=== PATIENT | female | born 1955 | race Caucasian/White ===

== ENCOUNTER 2024-03-19 07:20 | Outpatient (CLI) | payer MEDICARE, SELFPAY ==
--- NOTE | 2024-03-19 07:22 | AAAS_ITS ---
Reason For Study: HX Carotid Aneurysm Aorta Measurements Aorta Doppler Measurements Proximal aorta measures2.57 x 2.59cm. in cross- Peak systolic flow velocities within the proximal sectional axis. aorta measure 54.2 cm/sec. Proximal aorta measures2.48cm. in longitudinal Peak systolic flow velocities within the mid aorta axis. measure 77.7 cm/sec. Mid aorta measures2.25 x 2.03cm. in cross- Peak systolic flow velocities within the distal sectional axis. aorta measure 68.7 cm/sec. Mid aorta measures2.24cm. in longitudinal axis. Distal aorta measures1.47 x 1.47cm. in cross- sectional axis. Distal aorta measures1.53cm. in longitudinal axis. Left Iliac Artery Left iliac artery measures 0.99 x 1.02 cm. in the cross-sectional axis. Left iliac artery measures 0.98 cm. in the longitudinal axis. Peak systolic velocity in the left iliac artery measures 129.3 cm/sec. Right Iliac Artery Right iliac artery measures 0.99 x 0.98 cm. in the cross-sectional axis. Right iliac artery measures 0.96 cm. in the longitudinal axis. Peak systolic velocity in the right iliac artery measures 139.7 cm/sec. Procedure Aorta IVC Iliac vasculature or bypass grafts [id number]. The exam was diagnostic. Exam performed in department. VL/AAA Screening Interpretation Summary Aorta patent, normal caliber Bilateral iliac arteries patent, normal caliber. Ordering Physician: Rosa Elena Christina Referring Physician: Greg Nance Performed By: Koffi Osborne, RVT
--- NOTE | 2024-03-19 07:22 | VDLE_ITS ---
Reason For Study: Preoperative Vein Mapping RIGHT LEFT GSV Prox Thigh - 0.42cm x 0.40cm GSV Prox Thigh - 0.89cm x 0.96cm GSV Mid Thigh - 0.42cm x 0.43cm GSV Mid Thigh - 0.75cm x 0.82cm GSV Dist Thigh - 0.39cm x 0.39cm GSV Dist Thigh - 1.26cm x 1.71cm GSV Knee - 0.45cm x 0.43cm GSV Knee - 0.94cm x 1.03cm GSV Prox Calf - 0.32cm x 0.35cm GSV Prox Calf - 0.87cm x 0.89cm GSV Mid Calf - 0.23cm x 0.22cm GSV Mid Calf - 0.25cm x 0.25cm GSV Dist Calf - 0.23cm x 0.25cm GSV Dist Calf - 0.26cm x 0.29cm SSV Prox Calf - 0.18cm x 0.18cm SSV Prox Calf - 0.30cm x 0.30cm SSV Mid Calf - 0.28cm x 0.26cm SSV Mid Calf - 0.26cm x 0.23cm SSV Dist Calf - 0.31cm x 0.29cm SSV Dist Calf - 0.27cm x 0.29cm GSV and SSV appear patent and compressible. GSV and SSV appear patent and compressible. Procedure This is a venous duplex using B-mode, color Incompetent Varicose Veins noted throughout flow and spectral Doppler. calves. Exam performed in department. The exam was diagnostic. Perfortating Vessel distal calf is INCOMPETENT for greater than 0.5 seconds and measures 0.38 cm. SFJ is INCOMPETENT and measures 1.08 cm. GSV INCOMPETENT throughout for greater than 0.5 seconds. VL/Saphenous Vein Mapping, Bilat Interpretation Summary Right great saphenous vein patent with measurements above. Left great saphenous vein patent with measurements above. Right small saphenous vein patent with measurements above. Left small saphenous vein patent with measurements above. Incidental reflux noted on left Ordering Physician: Rosa Elena Christina Referring Physician: Greg Nance Performed By: Koffi Osborne RVT
== END 2024-03-19 23:59 | disposition home or self-care (01) ==
PROVIDERS: PCP Family Medicine; Referring Provider Physician Assistant; Visit Provider Physician Assistant
DX: Z01.818 Encounter for other preprocedural examination (principal); I72.0 Aneurysm of carotid artery; Z86.79 Personal history of other diseases of the circulatory system
CPT/HCPCS: 76706; 93970

== ENCOUNTER 2024-04-06 12:33 | Inpatient (IN) | payer MEDICARE, SELFPAY ==
--- NOTE | 2024-03-19 07:18 | EKG12_ITS ---
Test Reason : PRE OP Blood Pressure : / mmHG Vent. Rate : 078 BPM Atrial Rate : 078 BPM P-R Int : 146 ms QRS Dur : 086 ms QT Int : 378 ms P-R-T Axes : 059 -28 031 degrees QTc Int : 430 ms Normal sinus rhythm Septal infarct , age undetermined Abnormal ECG Confirmed by FAM MEYER, JOHN ([id number]), state editor HAN SOL ([id number]) on 03/19/2024 10:02:26 AM Referred By: TIKA Confirmed By:JOHN OTTO MD
--- NOTE | 2024-03-19 07:30 | RAD_ITS ---
INDICATION: Preop exam, recent pneumonia EXAMINATION/TECHNIQUE: X-RAY - XR Chest 2 Views COMPARISON: 03/19/2024. FINDINGS: The lungs are clear. Tortuous and calcified thoracic aorta. The heart is not enlarged. No pleural effusion or pneumothorax. Degenerative changes of the thoracic spine. RAD/Chest PA and Lateral IMPRESSION: No acute radiographic abnormalities. Electronically Signed: Kade Hernández MD at 16:25 EDT ,
[2024-03-31 11:16] LABS: Absolute Lymphocyte Count 1.53 X10^3/uL (0.83-4.51); Absolute Neutrophil Count 2.8 X10^3/uL (2.0-7.7); Basophil# 0.04 X10^3/uL; Basophil% 0.8 % (0-1); Eosinophil# 0.11 X10^3/uL; Eosinophils% 2.2 % (0-5); Hematocrit 41.6 % (37-47); Hemoglobin 13.7 g/dL (12.0-15.0); Lymphocyte # 1.53 X10^3/ul (0.83-4.51); Lymphocyte % 31.3 % (19-41); Mean Corp Hgb Conc 32.9 g/dL (32-36); Mean Platelet Vol. 8.4 fl (6.2-12.0); Monocyte% 8.2 % (0-10); NRBC Flagged by Analyzer 0 % (0-5); Neutrophil % 57.3 % (47-70); Platelet Count 304 K/mm3 (150-450); RBC Distribution Width CV 12.4 % (11.6-14.6); Red Blood Count 4.57 M/mm3 (4.2-5.4); White Blood Count 4.9 K/mm3 (4.4-11.0)
[2024-03-31 11:39] LABS: Anion Gap 4 (5-15); BUN 10 mg/dL (7-18); BUN/Creat Ratio 18.8 RATIO (10-20); Calcium,Total 9.6 mg/dL (8.5-10.1); Chloride 108 mmol/L (98-107); Creatinine, Serum 0.53 mg/dL (0.55-1.02); EST Glomerular Filtration Rate 122 mL/min (>60); Est Glom Filt Rate - Afr Amer 147 mL/min (>60); Glucose 118 mg/dL (74-106); Potassium 3.5 mmol/L (3.5-5.1); Sodium Level 141 mmol/L (136-145)
[2024-04-06] VITALS (27 sets, daily range): BP systolic 98–201; BP diastolic 52–115; PULSE 81–111; RESP 16–25; TEMP 36.3–36.9; O2SAT 90–97; BMI 28.2
--- NOTE | 2024-04-06 06:31 | PCM.PRE.AN2 ---
ASA Classification* ASA Classification ASA Classification: 3 Assessment & Plan Anesthesia* Anesthesia Assessment Anesthesia Assessment: Discussed sedation and/or anesthesia options, risks, benefits, and alternatives with patient/parents/legal guardian/POA. Questions invited. The patient/parents/legal guardian/POA seems to understand and agrees to proceed with anesthesia plan. Reviewed the physical assessment, medical history, allergy history and patient home medications list prior to surgery/procedure/anesthetic and documented any changes. Performed airway and anesthesia risk assessments. Anesthesia Type Anesthesia Type: General Anesthesia Focused Assessment* Airway Assessment Mouth opens: >3 cm Mallampati Score: II Focused Labs Anesthesia Preop lab: CBC WBC 4.9 K/mm3 (4.4-11.0) 03/31/24 11:02 RBC 4.57 M/mm3 (4.2-5.4) 03/31/24 11:02 Hgb 13.7 g/dL (12.0-15.0) 03/31/24 11:02 Hct 41.6 % (37-47) 03/31/24 11:02 Plt Count 304 K/mm3 (150-450) 03/31/24 11:02 CHEMISTRY Potassium 3.5 mmol/L (3.5-5.1) 03/31/24 11:02 Sodium 141 mmol/L (136-145) 03/31/24 11:02 BUN 10 mg/dL (7-18) 03/31/24 11:02 Creatinine 0.53 mg/dL (0.55-1.02) L 03/31/24 11:02 Glucose 118 mg/dL (74-106) H 03/31/24 11:02 COAG Pre-Assessment Diagnosis/Proposed Procedure Planned Operative Procedure(s): LEFT CAROTID ANEURYSM REPAIR Anesthesia History Anesthesia History - production associate: Anesthesia History - production associate Hx Hospitalization Yes: 01/2024 PNEUMONIA 03/16/24 13:08 Any Problems With Anesthesia No 03/16/24 13:08 Cholinesterase deficiency No 03/16/24 13:08 You/Your Family Experience No 03/16/24 13:08 fever (hyperthermia) with Relationship Recent Exposure to Contagious Disease Does patient have nerve No 03/16/24 13:08 stimulator Patient instructed to have device shut off --Does patient have Pacemaker or ICD? When Was Last Pacemaker Check QUESTION #4 FULL TEXT: You/Your Family Experience fever (hyperthermia) with Anesthesia Last Oral Intake Last Oral intake: Last Oral Intake NPO since Meds taken in AM with sips of water? Meds patient instructed to take am of surgery PONV PONV - production associate: PONV - production associate Female Yes 03/16/24 13:08 HX of Motion Sickness Yes 03/16/24 13:08 HX of N/V After Surgery No 03/16/24 13:08 Non-Smoker Yes 03/16/24 13:08 Duration of Surgery greater Yes 03/16/24 13:08 than 60 minutes Number of Risk Factors 4 03/16/24 13:08 PONV Score Severe Risk 03/16/24 13:08 Height & Weight Height & Weight: Anesthesia: Height & Weight Height 5 ft 2 in 03/19/24 10:08 Respiratory Assessment Respiratory Assessment - production associate: Respiratory Tract Infection Hx - production associate Hx Respiratory Tract Infection No 03/16/24 13:08 STOP Sleep Apnea STOP Sleep Apnea - production associate: STOP Sleep Apnea - production associate Hx Hypertension No 03/16/24 13:08 Hx Sleep Apnea No 03/16/24 13:08 CPAP BIPAP Do you snore loudly (louder No 03/16/24 13:08 than talking or can be heard Do you often feel tired/ No 03/16/24 13:08 fatigued/ sleepy during daytime? Has anyone observed you stop No 03/16/24 13:08 breathing during sleep? STOP Results Negative 03/16/24 13:08 QUESTION #5 FULL TEXT : Do you snore loudly (louder than talking or can be heard through closed doors)? Tobacco Use History Tobacco Use History - production associate: Tobacco Use History - production associate Tobacco Use Smoking Status Former smoker 03/19/24 10:06 Hx Tobacco Use Yes 03/16/24 13:08 Years Smoking Packs Smoked per Day Smoking Cessation Date was within the last 15 years Hx Smoking Cessation Date Hx Smoking Cessation Counseling Hematologic Medial History Hematologic Hx - production associate: Hematologic Medical Hx - outbound sales advisor Hx of Blood Transfusion No 03/16/24 13:08 Hx of Transfusion in last 3 No 03/16/24 13:08 Months Date of Last Transfusion (if within last 3 months) Ever experience any problems No 03/16/24 13:08 with transfusion(s)? Specify any problems Hx of Preganancy in last 3 No 03/16/24 13:08 Months Nurse Filling Out Transfusion DSCHRIBER 03/16/24 13:08 & Questions: Date: 03/16/24 03/16/24 13:08 Time: 13:10 03/16/24 13:08 Patient unable to answer at this time (ie. confused, unrespo /Reproduction History /Reproductive History - production associate: /Reproductive Hx- production associate Hx Now No 03/16/24 13:08 Gestational Age (in weeks): EDC: Hx Hx Para Hx Section SAB No 03/16/24 13:08 Active Medications Active Medications: Current Medications Generic Name Dose Route Start Last Admin Trade Name Freq PRN Reason Stop Dose Admin Cefazolin Sodium 2 gm/ N/A 20 mls @ 400 mls/hr 04/06/24 07:30 IV 04/06/24 07:32 PREOP ONE Lactated Ringer's 1,000 mls @ 15 mls/hr 04/06/24 06:00 IV 04/11/24 19:19 .[facility] Protocol PFSH Medical History Wears glasses Wears partial dentures Wears dentures Post-menopausal Anxiety Alcohol use History of steroid therapy Shortness of breath on exertion Asthma Smoker History of echocardiogram Home Medications ?Medication ?Instructions ?Recorded ?Last Taken ?Type albuterol sulfate 90 mcg/actuation 2 puff inhalation Q6H PRN PRN 03/16/24 Unknown History aerosol inhaler wheezing aspirin 81 mg tablet,delayed 81 mg PO DAILY SUPPLEMENT 03/16/24 Unknown History release (Adult Aspirin Regimen) Allergy/AdvReac Type Severity Reaction Status Date / Time No Known Allergies Allergy Verified 03/19/24 10:07 Family History Other Asthma Diabetes Heart disease Hypertension Surgical History Hx of colonoscopy History of carpal tunnel surgery of right wrist History of carpal tunnel surgery of left wrist Social History Smoking Status: Former smoker Tobacco: How many years used: 22 how long ago did patient quit smoking: quit 12 yr ago alcohol intake: current details: occassionally substance use type: does not use additional social history: asa daily, no ibuprofen. no history of blood clots Review of Systems (Anesthesia) ROS Narrative System reviewed and no additional complaints, except as documented.
[2024-04-06] MEDS: Lactated Ringers 1,000 ML 15 ML IV (06:35)
--- NOTE | 2024-04-06 07:08 | HP.PCM.SX_ITS ---
HPI - General General Date of Admission: 04/06/24 HPI Narrative Deya Colunga is a delightful 69-year-old female who presents today for preoperative consult for plastic surgery assistance in the setting of planned left carotid aneurysm repair with vascular surgery (Dr. Erickson). Patient has had a lump on her left neck/posterior jawline for 2 months that was increasing in size. It was noted during a recent hospital admission for pneumonia and a CT scan was obtained by her primary care physician demonstrating the aneurysm. Dr. Erickson is requesting assistance for exposure (near her mandible and near facial nerve) of the aneurysm and for general assistance. Of note patient has dentures on the top and a partial on the bottom. She has quit smoking 12 year ago and no personal or family history of blood clots. Patient is on aspirin 81mg daily per Dr. Erickson preoperatively. No history of problems with anesthesia. Patient has a history of asthma Current Encounter (DATE OF SURGERY H&P UPDATE): I saw and examined the patient this morning in pre-operative holding. We discussed risks and benefits of today's surgery and they would like to proceed. NO CHANGE in health history since last seen and evaluated. Ready to proceed with surgery. [facility] Medical History Wears glasses Wears partial dentures Wears dentures Post-menopausal Anxiety Alcohol use History of steroid therapy Shortness of breath on exertion Asthma Smoker History of echocardiogram Home Medications ?Medication ?Instructions ?Recorded ?Last Taken ?Type albuterol sulfate 90 mcg/actuation 2 puff inhalation Q6H PRN PRN 03/16/24 Unknown History aerosol inhaler wheezing aspirin 81 mg tablet,delayed 81 mg PO DAILY SUPPLEMENT 03/16/24 04/05/24 History release (Adult Aspirin Regimen) Allergy/AdvReac Type Severity Reaction Status Date / Time No Known Allergies Allergy Verified 04/06/24 06:32 Family History Other Asthma Diabetes Heart disease Hypertension Surgical History Hx of colonoscopy History of carpal tunnel surgery of right wrist History of carpal tunnel surgery of left wrist Social History Smoking Status: Former smoker Tobacco: How many years used: 22 how long ago did patient quit smoking: quit 12 yr ago alcohol intake: current details: occassionally substance use type: does not use additional social history: asa daily, no ibuprofen. no history of blood clots Vital Signs Vital Signs Vital Signs: 04/06/24 06:36 04/06/24 06:36 Temperature 98.5 F Temperature Source Temporal Pulse Rate 86 Respiratory Rate 16 Respiratory Pattern Normal Blood Pressure 165/97 H Blood Pressure Mean 119 Blood Pressure Source Monitor Blood Pressure Position Sitting Blood Pressure Location Right Arm Pulse Ox 95 Oxygen Delivery Method Room Air Weight Weight: 154 lb 5.177 oz Body Mass Index (BMI) 28.2 Physical Exam Narrative Cranial nerve exam: Cranial nerve II: visual acuity intact (able to read small letters from across the room). No changes in color interpretation. Cranial nerves III, IV and : extraocular movements intact, no diplopia with extraocular movements. Cranial nerve V: sensation to light touch intact in all 3 distributions of cranial nerve V. Cranial nerve VII: Patient is able to raise eyebrows, closes eyes, smile, purse lips, and move his lower lip to show his lower teeth symmetrically on both sides. Able to stick out their tongue and shrug shoulders normally. Uvula elevates. Occlusion: Edentulous. Good occlusion with the dentures (partial on the bottom). Partial removed and has a bicuspid and two premolars on the right mandible. [facility] Head: other (Palpable carotid aneurysm on the left side of the face and upper neck pulsa) Other: Neck Neck: no lymphadenopathy, trachea midline and no JVD Results Lab / Micro Data 03/31/24 11:02 03/31/24 11:02 Assessment & Plan Assessment/Plan (1) Carotid aneurysm, left: PLAN: INTERVAL H&P PLAN, DATE OF SURGERY: I talked to the patient and her today about the potential need for mandibular subluxation for better exposure of the high carotid aneurysm. She understands the plan and the risks/benefits and alternatives. She understands risks of mandibular fracture/damage to the mandible, pain, TMJ problems, residual dislocation requiring other interventions, damage to teeth/tooth roots, and damage to nerves (causing numbness or motor dysfunction). I talked to her about how manipulation of the mandible for subluxation requires wires and or arch bars and could damage surrounding structures/teeth. She would like to proceed. I will assist Dr. Erickson (vascular) today and attempt mandibular subluxation as needed for exposure. We will proceed with surgery today.
--- NOTE | 2024-04-06 07:39 | PCM.HP.BLA ---
History and Physical Visit Reasons: CAROTID ANEURYSM Chief Complaint: establish care Is patient in pain?: No Allergies No Known Allergies Allergy (Verified 03/09/24 11:22) Is last menstrual period known: Yes Post menopausal: Yes Patient : No Have you fallen in the past year?: Yes PFSH Surgical History (Updated 03/09/24 @ 11:25 by Debbie Donaldson) History of carpal tunnel surgery (~1998) Family History (Updated 03/09/24 @ 11:22 by Debbie Donaldson) Other Asthma Diabetes Heart disease Hypertension Social History (Updated 03/09/24 @ 11:23 by Debbie Donaldson) Smoking Status: Former smoker Tobacco: How many years used: 22 HPI HPI HPI: MARVIN LUDWIG, is a 69 F who presents to the office today for evaluation of left carotid artery aneurysm as referred by her PCP. She reports she noticed swelling in the left side of her neck for at least the last 2 months. She has not noticed any sudden increase in the size of the swelling. There is no associated pain. She has noticed a feeling of fullness in her left ear. She recently had pneumonia and saw her PCP at that time and mentioned this increased swelling leading to the CTA which revealed this carotid aneurysm. She denies any known history of CVA/TIA, neck surgery/injury/radiation. She denies any family history of aneurysms. She is a former smoker, quit 13 years ago. She denies any history of heart disease, VTE, claudication, lung disease, kidney disease, diabetes. She is able to complete 4 METS of activity without any chest pain or shortness of breath. Her blood pressure and heart rate are noted to be elevated in the office today. She is visibly anxious in the office today and does admit to having a lot of anxiety surrounding this diagnosis. ROS General General: Yes fatigue and weakness; No weight change, appetite, colon cancer or breast cancer HEENT HEENT: Yes swollen glands; No difficulty swallowing, eye injury, eye surgery or hoarseness Endo Endocrine: No thyroid disease, diabetes mellitus, thyroid cancer, Hair loss, heat intolerance or cold intolerance Skin Skin: No rash or changing moles Musc Musculoskeletal: No back problems, arthritis, rheumatoid arthritis, gout or joint pain Cardio Cardiovascular: No murmur, pacemaker, heart disease, atrial fibrillation, high blood pressure, heart attack, heart stent, palpitations, shortness of breat with exertion or chest pain Psych Psychiatric: No depression, anxiety or hearing voices Resp Respiratory: No shortness of breath, No sleep apnea, No cough, No COPD, No asthma, No emphysema and No wheezing Gastro Gastrointestinal: No abdominal pain, No nausea or vomiting, No diarrhea, No constipation, No blood in stool, No acid reflux, No hemorrhoids, No ulcers, No gallbladder problem and No black,tarry stools Brice Hematologic: No blood thinners, No blood disorders, No bleeding, No anemia and No blood clots Neuro Neurologic: No system reviewed and no additional complaints, except as documented, No as per HPI, No abnormal gait, No abnormal hearing, No abnormal movements, No abnormal speech, No behavioral changes, No burning sensations, No confusion, No convulsions, No disequilibrium, Yes dizziness, No localized weakness, No frequent falls, No headache(s), No lack of coordination, No loss of vision, No memory loss, No numbness, No other visual disturbances, No radicular pain, No restless legs, No sensory deficit, No syncope, Yes tingling, No tremor(s), Yes weakness and No other Exam Const General: cooperative, comfortable and no acute distress Orientation: alert, awake and oriented x3 HENMT Head: normal to inspection, normocephalic and atraumatic Ears: hearing grossly normal bilaterally and external ears normal Nose: external nose normal Eyes General: appearance normal, both eyes and all related structures EOM: EOM intact bilaterally Neck Neck: trachea midline Other: Pulsatile mass noted to the left proximal neck. No associated erythema, excessive warmth. Resp Effort & Inspection: normal respiratory effort, able to speak in complete sentences, not labored, no respiratory distress, no retractions, no stridor and no use of accessory muscles Auscultation: clear to auscultation bilaterally Cardio Rate: regular rate Rhythm: regular rhythm Heart Sounds: no murmurs Pulses: brachial pulses present and radial pulses present Skin General: no rashes or lesions noted Trauma: no lacerations or abrasions Wounds: no wounds Neuro General: gait normal, moves all extremities, no focal motor deficits and CN's II-XI intact bilaterally Speech: speech normal Sensory Exam: no sensory deficits noted Extremities Pulses: Normal: Right Radial Pulse and Left Radial Pulse Lower Extremity Edema: None: Bilateral Psych Appearance: grossly normal Mental Status: mental status grossly normal Affect: normal affect Speech and Movement: speech and movement normal Attitude: cooperative Coding Level of Care Code Off vis,new,level 4 Diagnoses Carotid aneurysm, left I72.0 Assessment and Plan Assessment and Plan (1) Carotid aneurysm, left: -open repair
[2024-04-06] MEDS: Cefazolin 2 GM in Syringe IV (07:54)
[2024-04-06] MEDS: Bupivacaine Mpf 0.5% 30 ML VIAL (12:34)
[2024-04-06 12:42] LABS: ACT Activated Clotting Time 244 sec (74-137)
[2024-04-06 12:42] LABS: ACT Activated Clotting Time 140 sec (74-137)
[2024-04-06 12:42] LABS: ACT Activated Clotting Time 232 sec (74-137)
[2024-04-06 12:56] LABS: ACT Activated Clotting Time 220 sec (74-137)
[2024-04-06] MEDS: Nitroglycerin Infusion 250 ML 6 MG CONT INF (13:20)
--- NOTE | 2024-04-06 13:20 | PCM.POST.ANE ---
Anesthesia: Postop Eval I Current Vital Signs Temperature: 97.8 F Pulse Rate: 100 Blood Pressure: 185/107 (Treated with labetalol 5mg in PACU. Dr. Erickson made aware. NTG drip started at 10mcg/min) Respiratory Rate: 16 Pulse Ox: 97 Oxygen Delivery Method: Simple Mask Oxygen Flow Rate (L/min): 6 Assessment Airway patent: Yes Spontaneous unlabored respirations: Yes Mental status: Awake and Calm nausea: No Vomiting: No Anesthesia Complication: No Fluid Hydration Crystalloid volume administer (ml): 2,600 Total IV fluid infused: 2,600 Progress Note Anesthesia document: Postop Eval 1 completed: Yes
--- NOTE | 2024-04-06 13:33 | PCM.OPRPT ---
Operative Report (Standard) Operative Information Surgery/Procedure Performed: Open repair left carotid aneurysm Surgeon: Dustin Erickson Date of Procedure: 04/06/24 Procedure Start Time: 08:40 Procedure Stop Time: 12:50 Pre-Operative Diagnosis: left internal carotid aneurysm Post-Operative Diagnosis: same Select all DRAINS/GRAFTS/IMPLANTS that apply: Drains Drain details: 19 Fr MINDA Type of Anesthesia: General Estimated Blood Loss: 150 Specimen collected: No Description of surgery: HPI: Patient is a 69-year-old female who was found to have a large left cervical carotid artery aneurysm. The vessel had significant redundancy and tortuosity and she was felt to be a satisfactory candidate for open repair so she is taken now for open excision with repair. Given the distal location of the aneurysm there is potential for advanced maneuvers necessary to obtain distal control including manipulation and/or division and reflection of the mandible so Dr. Mejia from plastic surgery assistance was obtained. Description of procedure: Upon obtaining form consent and verification correct patient procedure site patient was taken to the operating where she was placed under general anesthesia. She was then positioned prepped and draped in the usual sterile fashion and a timeout was performed. Longitudinal incision was made at the anterior border the sternocleidomastoid extending up to just beyond the angle of the mandible. Bovie electrocautery was used to dissect through subcutaneous tissue down to the level the platysma which was then divided and self-retaining retractors put in position. Further dissection was then carried down to the sternocleidomastoid which was freed along its anterior border and retracted posterior laterally exposing the carotid sheath. At this point sharp dissection used to dissect free the anterior border the jugular vein with multiple anterior side branches identified, ligated with silk ties, and divided. The jugular vein was then retracted laterally exposing the carotid vessels. Sharp dissection was used to dissect free the proximal common carotid artery with care taken to identify and protect the vagus nerve and a right angle was placed vessel loop. Next dissection was carried distally exposing the superior aspect of the aneurysm with the hypoglossal nerve encountered displaced inferiorly and superficially from its normal [place] position. This was mobilized and protected and retracted cephalad in order to further visualize the distal vessel and aneurysm. The digastric muscle was retracted cephalad and we were ultimately able to visualize the superior aspect of the aneurysm. The aneurysm was fusiform with the base projecting from the lateral aspect of the carotid in the mid section of a significantly redundant and tortuous segment. Ultimately were able to mobilize this near circumferentially and a right angle to place a vessel loop distally around the internal carotid artery beyond the aneurysm base. The hypoglossal nerve and vagus nerve were visualized and protected though significant mobilization of both was required in order to gain adequate exposure. Once satisfactory mobilization of the aneurysm and the internal carotid artery was performed we turned attention to the external carotid artery which was dissected free and a right angle was placed vessel loop. The patient was then heparinized and allowed to circulate for 3 minutes after which the vessels were occluded first the internal followed by the common the external. The aneurysm was then opened with an 11 blade and extended with Metzenbaum scissors in order to visualize the lumen of the internal carotid artery. Ennis scissors were then used to extend from the aneurysm origin approximately in order to gain adequate visualization to place our shunt. An 8 Chinese shunt was then placed first distally in the internal carotid artery allowed to backbleed before placing proximally retrograde in the internal carotid artery and advancing it into the common carotid artery. The shunt was interrogated with Doppler and found to be patent with low resistance signal. Next we divided the aneurysm close to its origin at the carotid in order to better visualize the healthy vessel. There was approximately 5 cm of redundancy that if removed would allow the vessel to return to a more straightened trajectory. The section was then excised and the vessel pulled the length with satisfactory apposition of the proximal and distal ends. We then performed an end-to-end anastomosis with 6-0 Prolene in interrupted fashion starting first with the posterior wall and will anteriorly. When the pair was approximately three quarters of the circumference the shunt was removed however it appears that one of the back wall sutures had been caught by the shunt and was disrupted. We then refashion the anterior wall of the vessel and completed our interrupted end-to-end repair. Prior to completing the suture line vessels were backbled after completing the suture line clamps removed with focal points of hemorrhage at the anterior aspect of the vessel where it was significantly thinned and fragile. Repair sutures were placed including finally a pledgeted repair that was ultimately successful. The vessel was interrogated with Doppler and found to have patent low resistant appropriate signal across the area of the anastomosis. Heparin was reversed with protamine and the incision inspected for hemostasis. He mL blast topical hemostatic was applied and a 19 Chinese channel MINDA placed via separate stab incision. The incision was then closed with 2-0 Vicryl, 3-0 Vicryl, 4 Monocryl and Dermabond for the skin. At the conclusion case the patient was awake from anesthesia moving all extremities to command with some minimal left lower facial droop likely from traction neuropraxia though other cranial nerves intact. The patient was then taken the recovery room with anticipated mission to the intensive care unit hemodynamic and neurologic monitoring. Surgical Findings: Moving all extremities to command post procedure, cranial nerves intact except mild the left facial droop likely from traction injury to nerve. Science And Operations Officer manufacturing operations manager: Yes Associate Marketing Manager: Sofie Paz Tasks completed by administrative office assistant: Closing and Retracting Complications Complications: No
[2024-04-06] MEDS: Acetaminophen 500 MG Tablet 1000 MG PO ×2 (15:53→20:35)
[2024-04-06] MEDS: oxyCODONE 5 MG Tablet PO (15:54)
[2024-04-06] MEDS: Labetalol (Prefilled) 20 MG/4 ML Vial 10 MG IV ×2 (15:54→17:29)
--- NOTE | 2024-04-06 16:25 | POSTOPAN2_ITS ---
Anesthesia Postop Eval I Sum Postop Eval Completion status Anesthesia document: Postop Eval 1 completed: Yes Anesthesia Postop Eval I Summary Anesthesia Postop Eval I Summary: Anesthesia Postop Eval I: Assessment Summary Airway patent Yes 04/06/24 13:29 WEALTH MANAGEMENT DIRECTOR.[email or web address] Spontaneous unlabored Yes 04/06/24 13:29 WEALTH MANAGEMENT DIRECTOR.GDOTT respirations Mental status Awake,Calm 04/06/24 13:29 WEALTH MANAGEMENT DIRECTOR.GDOTT nausea No 04/06/24 13:29 WEALTH MANAGEMENT DIRECTOR.GDOTT Vomiting No 04/06/24 13:29 WEALTH MANAGEMENT DIRECTOR.GDOTT Anesthesia Postop Eval I: Fluid Summary Crystalloid volume administer 2,600 04/06/24 13:29 WEALTH MANAGEMENT DIRECTOR.GDOTT (ml) Colloids volume administered ( ml) Blood Product volume administered (ml) Total IV fluid infused 2,600 04/06/24 13:29 WEALTH MANAGEMENT DIRECTOR.GDOTT Anesthesia Postop Eval I: Summary Notes Anesthesia Complication No 04/06/24 13:29 WEALTH MANAGEMENT DIRECTOR.GDOTT Anesthesia Complication Comment: Post-operative progress note Anesthesia: Postop Eval II Evaluation Mental status: Awake and Calm Pain Level: 1 nausea: No Vomiting: No Complications Anesthesia Complication: No
--- NOTE | 2024-04-06 16:25 | PCM.POSTANE2 ---
Anesthesia Postop Eval I Sum Postop Eval Completion status Anesthesia document: Postop Eval 1 completed: Yes Anesthesia Postop Eval I Summary Anesthesia Postop Eval I Summary: Anesthesia Postop Eval I: Assessment Summary Airway patent Yes 04/06/24 13:29 ACO COORDINATOR.[email or web address] Spontaneous unlabored Yes 04/06/24 13:29 ACO COORDINATOR.GDOTT respirations Mental status Awake,Calm 04/06/24 13:29 ACO COORDINATOR.GDOTT nausea No 04/06/24 13:29 ACO COORDINATOR.GDOTT Vomiting No 04/06/24 13:29 ACO COORDINATOR.GDOTT Anesthesia Postop Eval I: Fluid Summary Crystalloid volume administer 2,600 04/06/24 13:29 ACO COORDINATOR.GDOTT (ml) Colloids volume administered ( ml) Blood Product volume administered (ml) Total IV fluid infused 2,600 04/06/24 13:29 ACO COORDINATOR.GDOTT Anesthesia Postop Eval I: Summary Notes Anesthesia Complication No 04/06/24 13:29 ACO COORDINATOR.GDOTT Anesthesia Complication Comment: Post-operative progress note Anesthesia: Postop Eval II Evaluation Mental status: Awake and Calm Pain Level: 1 nausea: No Vomiting: No Complications Anesthesia Complication: No
[2024-04-06] MEDS: Cefazolin 1 GM/50 ML BAG IV ×2 (16:31→20:35)
[2024-04-06] MEDS: hydrALAZINE 20 MG/ML Vial 10 MG IV ×2 (16:47→18:49)
[2024-04-06] MEDS: 0.9% Saline Lock 10 ML Syringe IV ×2 (16:47→17:29)
[2024-04-07] VITALS (22 sets, daily range): BP systolic 101–156; BP diastolic 50–104; PULSE 88–112; RESP 15–26; TEMP 36.4–36.7; O2SAT 69–97; BMI 29.0
[2024-04-07] MEDS: oxyCODONE 5 MG Tablet PO ×2 (02:30→10:17)
[2024-04-07] MEDS: Labetalol (Prefilled) 20 MG/4 ML Vial 10 MG IV (03:37)
[2024-04-07] MEDS: HYDROmorphone 0.5 MG/0.5 ML SYRINGE IV (03:51)
[2024-04-07 03:53] LABS: Absolute Lymphocyte Count 1.41 X10^3/uL (0.83-4.51); Absolute Neutrophil Count 6.7 X10^3/uL (2.0-7.7); Basophil# 0.02 X10^3/uL; Basophil% 0.2 % (0-1); Hemoglobin 12.2 g/dL (12.0-15.0); Lymphocyte # 1.41 X10^3/ul (0.83-4.51); Lymphocyte % 15.8 % (19-41); Mean Corpuscular Hgb 30.3 pg (27.0-32.0); Mean Corpuscular Volume 91.8 fL (81-99); Mean Platelet Vol. 8.3 fl (6.2-12.0); Monocyte# 0.78 X10^3/uL; Monocyte% 8.8 % (0-10); NRBC Flagged by Analyzer 0 % (0-5); Neutrophil # 6.65 X10^3/uL (2.7-7.7); Neutrophil % 74.8 % (47-70); Platelet Count 281 K/mm3 (150-450); RBC Distribution Width CV 12.8 % (11.6-14.6); RBC Distribution Width SD 42.9 fl (35.1-43.9); Red Blood Count 4.03 M/mm3 (4.2-5.4); White Blood Count 8.9 K/mm3 (4.4-11.0)
[2024-04-07] MEDS: Acetaminophen 500 MG Tablet 1000 MG PO ×2 (06:12→13:58)
[2024-04-07] MEDS: BENZOCAINE/MENTHOL 1 LOZENGE MUCOUS MEM (06:15)
[2024-04-07] MEDS: 0.9% Saline Lock 10 ML Syringe IV (06:18)
--- NOTE | 2024-04-07 06:57 | PCM.PN.BLA ---
Progress Note Patient doing well. Pain controlled Physical Exam Narrative HEENT: No hematoma. Drain strips well, SS, no clot. 20 cc output CN exam: slight weakness on left marginal mandibular but appears to be firing (just weak). Otherwise CN exam unremarkable. Const alert and oriented x3 Resp normal respiratory effort Resp Narrative: 800 on IS Extremity normal to inspection Extremity Narrative: SCDs on and activated Assessment & Plan Assessment/Plan (1) Carotid aneurysm, left: PLAN: Doing well post op day 1 Will defer to vascular for drain management and primary orders. [facility] available for assistance Procedures Integumentary [id number]: [id number] Global Visit
--- NOTE | 2024-04-07 07:42 | PN.SURG_ITS ---
Subjective Subjective Ashwini is seen resting in bed this morning. She reports she is having pain along her jaw and she feels along the muscle of the left side of her neck depending on how she turns her head. She denies any left-sided headache, hoarseness, new or worse numbness/tingling/weakness. She does have drooping of the left side of her mouth which has been stable since postop. Her blood pressures have been on the higher side but improved this morning compared to yesterday evening. Objective Data Objective Data Vital Signs: Vital Signs Temp Pulse Resp BP Pulse Ox O2 Del Method O2 Flow Rate 98.1 F 97 26 H 134/104 H 97 Nasal Cannula 2 04/07/24 05:57 04/07/24 07:00 04/07/24 06:00 04/07/24 07:00 04/07/24 07:00 04/07/24 07:00 04/07/24 07:00 Oxygen Flow Rate (L/min) 2 Oxygen Delivery Method Nasal Cannula Weight: 158 lb 11.725 oz Body Mass Index (BMI) 29.0 Intake & Output: Intake and Output for Last 24 Hours 04/05/24 04/06/24 04/07/24 23:59 23:59 23:59 Intake Total 1743.05 / 1743.05 Output Total 520 / 520 Balance 1223.05 / 1223.05 -25 Lab / Micro Data 04/07/24 03:45 03/31/24 11:02 Labs: Laboratory Results - last 24 hr 04/06/24 09:24: Activated Clotting Time 140 H 04/06/24 10:49: Activated Clotting Time 244 H 04/06/24 11:32: Activated Clotting Time 232 H 04/06/24 12:13: Activated Clotting Time 220 H 04/07/24 03:45: WBC 8.9, RBC 4.03 L, Hgb 12.2, Hct 37.0, MCV 91.8, MCH 30.3, MCHC 33.0, RDW Std Deviation 42.9, RDW Coeff of Yosvany 12.8, Plt Count 281, MPV 8.3, Immature Gran % (Auto) 0.400, Neut % (Auto) 74.8 H, Lymph % (Auto) 15.8 L, [place] % (Auto) 8.8, Eos % (Auto) 0.0, Baso % (Auto) 0.2, Absolute Neuts (auto) 6.7, Absolute Lymphs (auto) 1.41, Nucleated RBC % 0 Physical Exam Const alert, oriented x3 and no apparent distress General Appearance: cooperative HEENT normocephalic, head/scalp atraumatic, hearing grossly normal bilaterally, external ears normal and external nose normal Eyes EOMs intact bilaterally General Eye: normal appearance of both eyes Neck Neck Narrative: Left neck incision site with skin glue intact, no dehiscence. Mild anticipated swelling, soft to palpation. Minimal ecchymosis. No hematoma. MINDA drain with serosanguineous output Resp normal respiratory effort, normal air movement, no retractions and no use of accessory muscles Effort and Inspection: able to speak in complete sentences and symmetric chest movement Cardio regular rate and regular rhythm Extremity no clubbing, cyanosis or edema Skin no rashes or lesions noted General Skin Exam: no breakdown Trauma: no lacerations or abrasions Neuro oriented x3 Neuro Narrative: Slight droop on the left side of her mouth otherwise cranial nerves intact Speech: speech normal Psych mental status grossly normal Appearance: grossly normal Attitude: calm and engaged Activity / Motor Behavior: appropriate eye contact Speech: normal speech Mood & Affect: euthymic mood Judgement: judgement good Assessment & Plan Assessment/Plan (1) Carotid aneurysm, left: PLAN: Plan She is POD #1 from open repair left carotid aneurysm. Postoperatively, she was noted to have slight droop of the left side of her mouth which is consistent with mandibular retraction. Otherwise, she is neurologically intact and stable. MINDA drain was removed this morning without issue, she tolerated this well. She has been hypertensive requiring as needed labetalol and hydralazine. Her blood pressures are improved this morning compared to last night. She is not on any home blood pressure medications at baseline. Will continue to monitor. She did require some Dilaudid overnight for her mandibular pain. Will try to manage primarily with oral pain medications today if possible. Will plan to have her ambulate with nursing/PT. Potential for discharge home later this afternoon pending blood pressure stability and pain control.
[2024-04-07] MEDS: Enoxaparin 40 MG/0.4 ML Syringe SC (08:54)
[2024-04-07] MEDS: Aspirin E.C. 81 MG Tablet PO (08:54)
[2024-04-07] MEDS: FLU VACCINE **HIGH DOSE** TV 24-25 180 MCG/0.5 ML SYRINGE IM (09:01)
[2024-04-07] MEDS: Docusate Sodium 100 MG Capsule PO (10:20)
--- NOTE | 2024-04-07 10:29 | CASEMGMT ---
MELISSA SNYDER Assessment Face to Face with patient for initial transition planning/care coordination assessment. MELISSA SNYDER introduced self and role at [facility], pt voices understanding. Pt is A&Ox4 and is resting comfortably in bed and is calm. Pt daughter and at bedside. Care providers, pharmacy, and demographics verified. Admitting dx: Lt Carotid Aneurysm Repair LACE Strata: 1 PCP: Greg Nance Specialists: Georgina (Vascular), Jackie (Plastics), Meenakshi (Pulm) [facility]erred [facility]acy: [facility] Insurance: [employer] [facility] Prescription Benefit: Yes LNOK: Keanu Garcia (H), Dania Valerio (Daughter) Living Arrangements: Pt lives with her in a single story home with a basement and a ramp to enter the home ADLs/IADLs: Reports ind Transportation: Self, DME: Pulse ox, Walker, BP Monitor. Pt is currently on additional oxygen and may qualify for home O2. A verbal list of local in-network DME companies provided to the pt at this time. Pt prefers [facility]. HHC/SNF: Denies history or needs Pt?s goal: Home Plan: Anticipate home no needs e/f possible oxygen and new blood thinner. 6-Click is 22. PT is ordered and pending. At this time, the pt denies the need for HH, OP Tx, CCN/ Pt Link and states that she feels safe returning home with the help of her once she is medically ready. CM to follow. Bran Manriquez RN, CM
--- NOTE | 2024-04-07 13:30 | RAD_ITS ---
STUDY: X-RAY CHEST REASON FOR EXAM: Female, 69 years old. O2 requirement, desaturation with activity TECHNIQUE: PA and lateral views of the chest. COMPARISON: Comparison is made with prior study March 19, 2024. FINDINGS: EKG electrodes are seen. The lungs are clear and expanded. There is no demonstrated pleural abnormality. Normal size heart. Normal mediastinum and bradley. Normal visualized pulmonary arteries. There is atherosclerotic calcification of the aortic arch with tortuosity. There are diffuse degenerative changes of the visualized thoracic spine. Increased kyphosis. Normal visualized ribs, clavicles, and shoulders. There is no demonstrated abnormality of the visualized soft tissue structures of the upper abdomen. RAD/Chest PA and Lateral IMPRESSION: No acute abnormality is seen. Electronically Signed: Byron Pascual MD at 14:10 EST ,
[2024-04-07 14:36] LABS: ACT Activated Clotting Time 134 sec (74-137)
--- NOTE | 2024-04-07 16:54 | CASEMGMT ---
Per the RN O2 testing, pt qualifies for home oxygen (2L w/ Exertion). Green sheet filled out with all of the appropriate documentation. This RN CM collaborated with the RN. RN is aware on how to complete the O2 setup, once signed by the provider.
--- NOTE | 2024-04-07 17:44 | PCM.DC.SUM ---
Providers Date of Admission: 04/06/24 Primary Care Physician: Dr. Greg Nance MD Reason For Visit: left Carotid aneurysm repair Diagnosis Discharge Diagnosis (1) Carotid aneurysm, left: Status: Acute Code(s): I72.0 - Aneurysm of carotid artery Plan She is POD #1 from open repair left carotid aneurysm. Postoperatively, she was noted to have slight droop of the left side of her mouth which is consistent with mandibular retraction. Otherwise, she is neurologically intact and stable. MINDA drain was removed this morning without issue, she tolerated this well. She has been hypertensive requiring as needed labetalol and hydralazine. Her blood pressures are improved this morning compared to last night. She is not on any home blood pressure medications at baseline. Will continue to monitor. She did require some Dilaudid overnight for her mandibular pain. Will try to manage primarily with oral pain medications today if possible. Will plan to have her ambulate with nursing/PT. Potential for discharge home later this afternoon pending blood pressure stability and pain control. Medications at Discharge Home Medications albuterol sulfate 90 mcg/actuation aerosol inhaler 2 puff inhalation Q6H PRN PRN wheezing 03/16/24 aspirin 81 mg tablet,delayed release (Adult Aspirin Regimen) 81 mg PO DAILY SUPPLEMENT 03/16/24 oxycodone 5 mg tablet 5 mg PO Q8H PRN PRN Pain Score 4-10 5 days #15 tabs 04/07/24 Hospital Course Summary of Care Provided Hospital Course: Ashwini Colunga is a 69 y/o female who presented for scheduled left carotid aneurysm repair performed by Dr. Erickson in conjunction with plastic surgery Dr. Mejia. The procedure went well and she tolerated it well. Postoperatively, she was routinely admitted to the ICU for ongoing hemodynamic and neurologic monitoring. She has had slight drooping of her L mouth since surgery, felt to be due to nerve irritation from mandibular retraction and expect this to improve with time. Otherwise, neurologically stable. She has remained hemodynamically stable, she was initially hypertensive requiring PRNs but today POD#1 has been overall normotensive. Her baseline HR seems to be in the 90s, she has had a few elevated HR but not persistent and asymptomatic. Her MINDA drain was removed POD#1 without issue. The surgical site is satisfactory in appearance, no evidence of hematoma. She has been requiring 2L O2 since surgery, mostly with exercise. Suspect she has some underlying COPD, she has outpatient workup planned for this though no definitive diagnosis at this time. She is otherwise asymptomatic, no having any SOB at rest or with activity, no cough, and CXR was negative for any acute process. Will discharge her home with home O2. She is tolerating a normal diet, ambulating well, and voiding without difficulty. Her pain is well managed on oral regimen. She felt comfortable discharging home along with her and family. She is medically stable for discharge home with outpatient follow-up scheduled 04/20/[address] in place. Physical Exam Const alert, oriented x3 and no apparent distress General Appearance: cooperative HEENT normocephalic, head/scalp atraumatic, hearing grossly normal bilaterally, external ears normal and external nose normal Eyes EOMs intact bilaterally General Eye: normal appearance of both eyes Neck Neck Narrative: Left neck incision site with skin glue intact, no dehiscence. Mild anticipated swelling, soft to palpation. Minimal ecchymosis. No hematoma. MINDA drain with serosanguineous output Resp normal respiratory effort, normal air movement, no retractions, no use of accessory muscles and clear to auscultation bilaterally Effort and Inspection: able to speak in complete sentences and symmetric chest movement Cardio regular rate and regular rhythm Extremity no clubbing, cyanosis or edema Skin no rashes or lesions noted General Skin Exam: no breakdown Trauma: no lacerations or abrasions Neuro oriented x3 Neuro Narrative: Slight droop on the left side of her mouth otherwise cranial nerves intact Speech: speech normal Psych mental status grossly normal Appearance: grossly normal Attitude: calm and engaged Activity / Motor Behavior: appropriate eye contact Speech: normal speech Mood & Affect: euthymic mood Judgement: judgement good Weight / BMI Weight Weight: 158 lb 11.725 oz Body Mass Index (BMI) 29.0 ABG / Lab / Microbiology Data 04/07/24 03:45 03/31/24 11:02 Laboratory: Laboratory Results - last 24 hr 04/06/24 13:11: Activated Clotting Time 134 04/07/24 03:45: WBC 8.9, RBC 4.03 L, Hgb 12.2, Hct 37.0, MCV 91.8, MCH 30.3, MCHC 33.0, RDW Std Deviation 42.9, RDW Coeff of Yosvany 12.8, Plt Count 281, MPV 8.3, Immature Gran % (Auto) 0.400, Neut % (Auto) 74.8 H, Lymph % (Auto) 15.8 L, Carter % (Auto) 8.8, Eos % (Auto) 0.0, Baso % (Auto) 0.2, Absolute Neuts (auto) 6.7, Absolute Lymphs (auto) 1.41, Nucleated RBC % 0 Radiography Diagnostic Testing: Radiology Impression Chest X-Ray 04/07/24 13:30 IMPRESSION: No acute abnormality is seen. Electronically Signed: Byron Pascual MD at 14:10 EST , D/C Instructions Discharge Diet: No restrictions May shower in (days): 1 Weight Bearing Status: Weight bearing as tolerated Lifting Restricted to (Lbs): 20 Lifting Restrictions: Do not lift greater than 20 pounds for 2 weeks Call your doctor if your incision/area has: Sudden Increased Bleeding, Increased Pain/ Swelling and Foul Smelling Discharge Call your doctor if you observe: Fever of 101 or Higher and Uncontrolled pain Remove Dressing in: 1 day Additional Instructions: You have a small bandage over the site from which the surgical drain was removed. You may remove this bandage tomorrow after your first shower. As long as there is no residual drainage, you may leave this open to air. If you do notice some continued drainage, you may re-cover with a Band-Aid. Your incision site is covered with surgical glue which will continue to protect it. The surgical glue will peel/flake off on its own over the next few weeks. Please do not pick at it. You may shower tomorrow afternoon/evening. It is okay for soap and water to rinse over the incision site, pat to dry. Do not submerge the incision site in water such as to take a bath or go swimming etc. for 3 weeks. Do not lift greater than 20 pounds for 3 weeks. Otherwise, please continue with activity as tolerated. Do not drive until you can turn your head well enough to safely check your blind spots. I have prescribed a prescription pain medication oxycodone 5 mg tablets to be taken by mouth every 8 hours as needed for pain. This is an opioid pain medication and is to be taken only as directed and as needed. Do not take in combination with any other prescription pain medications. You may take this in addition to Tylenol or ibuprofen as allowed. You are scheduled for follow-up in the office on 04/20/24 at 9:30 AM. If you need to change this appointment or have any other questions/concerns please contact the office at [phone]. Please Follow Up With: Rosa Elena Christina PA When: 04/20/24 at 9:30 AM Meaningful Use Info Meaningful Use Meaningful Use Diagnoses (Choose all that apply): None applicable Ischemic Stroke Statin Dosing Therapy Reference: STATIN DOSE THERAPY REFERENCE: * Patients > 75 years receive moderate or high dose statin therapy. * Patients 75 years or YOUNGER should receive HIGH intensity statin dose unless contraindicated. You will be required to document reason for non-treatment if statin daily dose does not meet guidelines. HIGH DOSE STATIN THERAPY DAILY Atorvastatin > than or = to 40 mg Rosuvastatin > than or = to 20 mg Amlodipine + Atorvastatin > than or = to 2.5/40 mg Ezetimibe + Simvastatin 10/80 mg Simvastatin 80mg Discharge Plan Admission Admit Date/Time: 04/06/24 12:33 Attending Provider: Dustin Erickson Primary Care Provider: Greg Nance Consulting Providers: Rosa Elena Christina; Ronni Mejia Instructions Additional Instructions / Restrictions: You have a small bandage over the site from which the surgical drain was removed. You may remove this bandage tomorrow after your first shower. As long as there is no residual drainage, you may leave this open to air. If you do notice some continued drainage, you may re-cover with a Band-Aid. Your incision site is covered with surgical glue which will continue to protect it. The surgical glue will peel/flake off on its own over the next few weeks. Please do not pick at it. You may shower tomorrow afternoon/evening. It is okay for soap and water to rinse over the incision site, pat to dry. Do not submerge the incision site in water such as to take a bath or go swimming etc. for 3 weeks. Do not lift greater than 20 pounds for 3 weeks. Otherwise, please continue with activity as tolerated. Do not drive until you can turn your head well enough to safely check your blind spots. I have prescribed a prescription pain medication oxycodone 5 mg tablets to be taken by mouth every 8 hours as needed for pain. This is an opioid pain medication and is to be taken only as directed and as needed. Do not take in combination with any other prescription pain medications. You may take this in addition to Tylenol or ibuprofen as allowed. You are scheduled for follow-up in the office on 04/20/24 at 9:30 AM. If you need to change this appointment or have any other questions/concerns please contact the office at [phone]. Discharge Orders/Prescriptions Prescriptions: New oxycodone 5 mg Tablet 5 mg PO Q8H PRN PRN (Reason: Pain Score 4-10) 5 Days Qty: 15 0RF Continued aspirin [Adult Aspirin Regimen] 81 mg tablet,delayed release (DR/EC) 81 mg PO DAILY albuterol sulfate 90 mcg/actuation HFA aerosol inhaler 2 puff INHALATION Q6H PRN PRN (Reason: wheezing) Referrals / Follow Up: Greg Nance MD [Primary Care Provider] - Disposition Disposition (needs filled in before D/C Order can be placed): Home, Self Care
== END 2024-04-07 18:22 | disposition home or self-care (01) | DRG 254 ==
PROVIDERS: Admitting Provider Surgery Trauma Surgery; PCP Family Medicine; Referring Provider Surgery Trauma Surgery; Visit Provider Surgery Trauma Surgery
PROC: 03B Upper Arteries, Excision (ICD-10-PCS; CPT 35301; principal; 2024-04-06 07:10)
DX: I72.0 Aneurysm of carotid artery (principal); J44.9 Chronic obstructive pulmonary disease, unspecified; I95.81 Postprocedural hypotension; Z79.82 Long term (current) use of aspirin; Z87.891 Personal history of nicotine dependence; Z97.2 Presence of dental prosthetic device (complete) (partial); R29.810 Facial weakness
CPT/HCPCS: 36415; 71046; 80048; 85025; 85347; 86850; 86900; 86901; 90662; 93005; 94668; 94762; 97162; 97166; 97802; 99252; A4648; A4216; G0463; J2405

== ENCOUNTER → 2024-06-15 | Outpatient (CLI) | payer MEDICARE, SELFPAY ==
--- NOTE | 2024-06-15 13:15 | CDU_ITS ---
Reason For Study: S/P Lt carotid aneurysm repair Rt. Velocities/BP Lt. Velocities/BP Prox CCA 57/11.6 cm/sec. Prox CCA 79.5/16.8 cm/sec. Mid CCA 62.6/15.4 cm/sec. Mid CCA 67.4/23.4 cm/sec. Dist CCA 40.9/7.8 cm/sec. Dist CCA 61.9/14.6 cm/sec. Prox ICA 50.9/21.2 cm/sec. Prox ICA 44.3/16.8 cm/sec. Mid ICA 69.2/29 cm/sec. Mid ICA 80.6/27.8 cm/sec. Dist ICA 71.1/29.6 cm/sec. Dist ICA 150.3/42.6 cm/sec. Rt. ICA/CCA = 1.14. Lt. ICA/CCA = 2.23. Prox ECA 78.4/11.3 cm/sec. Prox ECA 75.1/12.4 cm/sec. Rt. Vert. 49.4/12.6 cm/sec. Lt. Vert. 73.6/22.5 cm/sec. Right Extracranial There is intimal thickening but no significant atherosclerotic plaque noted in the right common carotid artery. There is intimal thickening but no significant atherosclerotic plaque noted in the right internal carotid artery. The right internal carotid artery is very tortuous. There is intimal thickening but no significant atherosclerotic plaque noted in the right external carotid artery. Antegrade flow is noted in the right vertebral artery. Left Extracranial There is homogeneous, smooth atherosclerotic plaque noted in the left common carotid artery. Heterogenous irregular plaque vs suture/anastamosis site is noted in the left internal carotid artery. There is intimal thickening but no significant atherosclerotic plaque noted in the left external carotid artery. Antegrade flow is noted in the left vertebral artery. Procedure This is a Carotid Duplex examination using B-mode, color flow and specral Doppler. Carotid Duplex [id number]. Exam performed in department. VL/Carotid Duplex Ultrasound Interpretation Summary Normal right extracranial internal carotid. Moderate (50-69%) stenosis left extracranial internal carotid. Patent and antegrade vertebrals bilaterally. Ordering Physician: Rosa Elena Christina Referring Physician: Greg Nance MD Performed By: Diana Isaacs RVT
== END | disposition home or self-care (01) ==
LOC: CVS 13:13
PROVIDERS: PCP Family Medicine; Referring Provider Physician Assistant; Visit Provider Physician Assistant
DX: I72.0 Aneurysm of carotid artery (principal); Z48.812 Encounter for surgical aftercare following surgery on the circulatory system
CPT/HCPCS: 93880

== ENCOUNTER → 2024-10-13 | Outpatient (CLI) | payer MEDICARE, SELFPAY ==
--- NOTE | 2024-10-13 09:36 | CDU_ITS ---
Reason For Study Reason For Study: S/P Lt carotid aneurysm repair Rt. Velocities/BP Lt. Velocities/BP Prox CCA 52.5/11.0 cm/sec. Prox CCA 88.8/19.4 cm/sec. Mid CCA 64.8/15.7 cm/sec. Mid CCA 73.2/31.4 cm/sec. Dist CCA 45.9/12.8 cm/sec. Dist CCA 58.4/20.4 cm/sec. Prox ICA 38.9/14.5 cm/sec. Prox ICA 72.0/29.0 cm/sec. Mid ICA 43.8/18.2 cm/sec. Mid ICA 86.5/32.2 cm/sec. Dist ICA 97.9/43.1 cm/sec. Dist ICA 146.7/48.2 cm/sec. Rt. ICA/CCA = 1.5. Lt. ICA/CCA = 2.0. Prox ECA 69.5/11.0 cm/sec. Prox ECA 64.6/10.6 cm/sec. Rt. Vert. 56.0/13.0 cm/sec. Lt. Vert. 63.4/20.4 cm/sec. Right Extracranial There is intimal thickening but no significant atherosclerotic plaque noted in the right common carotid artery. There is heterogeneous, irregular atherosclerotic plaque noted in the right internal carotid artery. There is homogeneous, smooth atherosclerotic plaque noted in the right external carotid artery. Antegrade flow is noted in the right vertebral artery. Left Extracranial There is homogeneous, smooth atherosclerotic plaque noted in the left common carotid artery. Heterogenous irregular plaque vs suture/anastamosis site is noted in the left internal carotid artery. There is intimal thickening but no significant atherosclerotic plaque noted in the left external carotid artery. Antegrade flow is noted in the left vertebral artery. Procedure Carotid Duplex [id number]. This is a Carotid Duplex examination using B-mode, color flow and specral Doppler. Exam performed in department. VL/Carotid Duplex Ultrasound Interpretation Summary Mild (<50%) stenosis right extracranial internal carotid. Moderate (50-69%) stenosis left extracranial internal carotid. Patent and antegrade vertebrals bilaterally. Ordering Physician: Rosa Elena Christina Referring Physician: Greg Nance MD Performed By: Jeri Carroll RVT
== END | disposition home or self-care (01) ==
LOC: CVS 09:34
PROVIDERS: PCP Family Medicine; Referring Provider Physician Assistant; Visit Provider Physician Assistant
DX: I72.0 Aneurysm of carotid artery (principal); Z48.812 Encounter for surgical aftercare following surgery on the circulatory system
CPT/HCPCS: 93880

== ENCOUNTER → 2025-04-11 | Outpatient (CLI) | payer MEDICARE, SELFPAY ==
--- NOTE | 2025-04-11 08:43 | CDU_ITS ---
Reason For Study Reason For Study: s/p Lt Carotid Aneurysm Repair Rt. Velocities/BP Lt. Velocities/BP Prox CCA 63/11 cm/sec. Prox CCA 97/25 cm/sec. Mid CCA 64/17 cm/sec. Mid CCA 73/22 cm/sec. Dist CCA 50/17 cm/sec. Dist CCA 68/19 cm/sec. Prox ICA 47/21 cm/sec. Prox ICA 74/22 cm/sec. Mid ICA 82/37 cm/sec. Mid ICA 137/52 cm/sec. Dist ICA 116/52 cm/sec. Dist ICA 173/63 cm/sec. Rt. ICA/CCA = 1.8. Lt. ICA/CCA = 2.4. Prox ECA 100/19 cm/sec. Prox ECA 98/14 cm/sec. Rt. Vert. 51/15 cm/sec. Lt. Vert. 100/30 cm/sec. Right Extracranial There is intimal thickening but no significant atherosclerotic plaque noted in the right common carotid artery. There is intimal thickening but no significant atherosclerotic plaque noted in the right internal carotid artery. There is intimal thickening but no significant atherosclerotic plaque noted in the right external carotid artery. Antegrade flow is noted in the right vertebral artery. Left Extracranial There is heterogeneous, irregular atherosclerotic plaque noted in the left common carotid artery. There is heterogeneous, irregular atherosclerotic plaque noted in the left internal carotid artery. The left internal carotid artery is very tortuous. There is intimal thickening but no significant atherosclerotic plaque noted in the left external carotid artery. Antegrade flow is noted in the left vertebral artery. Procedure Carotid Duplex [id number]. This is a Carotid Duplex examination using B-mode, color flow and specral Doppler. Exam performed in department. VL/Carotid Duplex Ultrasound Interpretation Summary Normal right extracranial internal carotid. Moderate (50-69%) stenosis left extracranial internal carotid. Patent and antegrade vertebrals bilaterally. Ordering Physician: Rosa Elena Christina Referring Physician: Greg Nance Performed By: Gerri Chiu, RDCS, RVT
== END | disposition home or self-care (01) ==
PROVIDERS: PCP Family Medicine; Referring Provider Physician Assistant; Visit Provider Physician Assistant
DX: I72.0 Aneurysm of carotid artery (principal); Z48.812 Encounter for surgical aftercare following surgery on the circulatory system
CPT/HCPCS: 93880